=== PATIENT | female | born 1955 | race Caucasian/White ===

== ENCOUNTER → 2020-02-01 10:38 | Outpatient (BNVA) | payer MEDICARE, MEDICAID, SELFPAY | PROVIDERS: PCP Internal Medicine; Referring Provider Internal Medicine; Visit Provider Surgery Vascular Surgery | DX: I73.9 Peripheral vascular disease, unspecified (principal); I77.1 Stricture of artery | CPT/HCPCS: 99213 ==

== ENCOUNTER 2020-05-13 13:33 | Outpatient (REF) | payer MEDICARE, MEDICAID, SELFPAY ==
--- NOTE | 2020-05-13 13:38 | US_ITS ---
EXAMINATION: COLOR-FLOW DUPLEX IMAGING OF THE BILATERAL LOWER EXTREMITY ARTERIAL SYSTEM. VELOCITY MEASUREMENTS THROUGHOUT THE FEMORAL ARTERIES WITH ANKLE-BRACHIAL PERIPHERAL ARTERIAL TESTING. CLINICAL INFORMATION: This is a 64-year-old female with peripheral arterial disease. Claudication. History of left external iliac artery stent. Interventional Radiologist: Timmy Shetty M.D., F.S.I.R., F.A.C.R. Comparison is made to a previous study dated 12/26/2019 which demonstrated a right ankle-brachial index of 0.80 and the left ankle-brachial index of 0.47. The patient also had elevated velocities in the left common femoral artery as well as the mid right superficial femoral artery, respectively. RIGHT FEMORAL RUNOFF VELOCITIES: The right common femoral artery measures 165 cm/s and triphasic. The right profunda femoral artery is 142 cm/s and is monophasic. Right proximal superficial femoral artery measures 173 cm/s and triphasic. Mid superficial femoral artery is 136 cm/s and triphasic. Distal right superficial femoral artery measures 81 cm/s and is biphasic. Right popliteal velocity measures 68 cm/s and is triphasic. The posterior tibial artery velocity measures 71 cm/s and was triphasic. The right ankle-brachial index is 0.86. The waveforms are mildly depressed. LEFT FEMORAL RUNOFF VELOCITIES: The left common femoral artery measures 162 cm/s and monophasic. The left profunda femoral artery is 247 cm/s and is monophasic. Left proximal superficial femoral artery measures 262 cm/s and monophasic. There appears to be occlusion of the proximal to mid left superficial femoral artery. Mid superficial femoral artery is 35 cm/s and monophasic. Distal left superficial femoral artery measures 37 cm/s and is monophasic. Left popliteal velocity measures 35 cm/s and is monophasic. The posterior tibial artery velocity measures 22 cm/s and was monophasic. The left peroneal artery is not seen and may be occluded. The left ankle-brachial index is 0.55. The waveforms are depressed. US/US arterial duplex LE BI IMPRESSION: 1. RIGHT SIDE: There is mild hemodynamically significant obstructive disease in the right lower extremity. This appears similar to the previous study. 2. LEFT SIDE: There is hemodynamically significant stenosis within the proximal left common femoral artery. There is hemodynamically significant stenosis in the proximal superficial femoral artery which then leads into a occluded segment. There is moderate obstruction based on the ankle-brachial index. The current ankle-brachial index is 0.55 on the left and 0.47 previously.
== END 2020-05-13 13:34 | disposition home or self-care (01) ==
LOC: HO.US 13:33
PROVIDERS: Visit Provider Surgery Vascular Surgery
DX: I73.9 Peripheral vascular disease, unspecified (principal); I65.29 Occlusion and stenosis of unspecified carotid artery
CPT/HCPCS: 93923; 93925

== ENCOUNTER → 2020-06-18 11:13 | Outpatient (BNVA) | payer MEDICARE, MEDICAID, SELFPAY | PROVIDERS: PCP Internal Medicine; Visit Provider Surgery Vascular Surgery | DX: I73.9 Peripheral vascular disease, unspecified (principal) | CPT/HCPCS: 99212 ==

== ENCOUNTER 2021-09-01 12:57 | Outpatient (RCR) | payer MEDICARE, MEDICAID, SELFPAY | END 2021-11-25 13:51 | disposition home or self-care (01) | LOC: HO.WCC 12:57 | PROVIDERS: PCP Internal Medicine; Visit Provider Physician Assistant | DX: L89.152 Pressure ulcer of sacral region, stage 2 (principal); N18.30 Chronic kidney disease, stage 3 unspecified; I69.354 Hemiplegia and hemiparesis following cerebral infarction affecting left non-dominant side; J44.9 Chronic obstructive pulmonary disease, unspecified; Z87.891 Personal history of nicotine dependence; Z99.81 Dependence on supplemental oxygen; Z79.899 Other long term (current) drug therapy; Z79.891 Long term (current) use of opiate analgesic | CPT/HCPCS: 11042; 16020; 16025; 99212; 99213; 99214 ==

== ENCOUNTER 2022-09-03 12:40 | Outpatient (REF) | payer MEDICARE, MEDICAID, SELFPAY ==
--- NOTE | ~2022-09-03 | US_ITS ---
EXAMINATION: ANKLE-BRACHIAL INDICES SINGLE LEVEL PULSE VOLUME RECORDING ARTERIAL DUPLEX BILATERAL LEGS CLINICAL INFORMATION: Claudication. COMPARISON: 05/13/2020 TECHNIQUE: Ankle-brachial indices and PVR at the ankle were obtained. Duplex Doppler of the bilateral lower extremity arterial systems was performed. FINDINGS: RIGHT: Ankle-brachial index: 0.76, previous 0.86. PVR: Mildly dampened. Common femoral: PSV 156 cm/s. Triphasic waveform. Deep femoral: PSV 162 cm/s. Triphasic waveform. Proximal superficial femoral: PSV 128 cm/s. Biphasic waveform. Mid superficial femoral: PSV 232 cm/s. Biphasic waveform. Distal superficial femoral: PSV 397 cm/s. Monophasic waveform. Popliteal: PSV 81 cm/s. Biphasic waveform. Posterior tibial: PSV 79 cm/s. Biphasic waveform proximally. Monophasic waveform distally. Peroneal: PSV 41 cm/s. Biphasic waveform proximally. Monophasic waveform distally. LEFT: Ankle-brachial index: 0.59, previous 0.55. PVR: Moderately dampened. Common femoral: PSV 127 cm/s. Triphasic waveform. Deep femoral: PSV 177 cm/s. Monophasic waveform. Proximal superficial femoral: PSV 137 cm/s. Monophasic waveform. Mid superficial femoral: Occluded. Distal superficial femoral: PSV 84 cm/s. Monophasic waveform. Popliteal: PSV 40 cm/s. Monophasic waveform. Posterior tibial: PSV 51 cm/s. Monophasic waveform. Peroneal: PSV 22 cm/s. Monophasic waveform. US/US MADDI complete IMPRESSION: Right lower extremity: Mild peripheral arterial disease by MADDI and PVR criteria. Hemodynamically significant stenosis in the mid to distal SFA in addition to distal posterior tibial and peroneal disease. Left lower extremity: Moderate peripheral arterial disease by MADDI are and PVR criteria. Chronically occluded mid SFA with distal reconstitution.
--- NOTE | ~2022-09-03 | US_ITS ---
EXAMINATION: ANKLE-BRACHIAL INDICES SINGLE LEVEL PULSE VOLUME RECORDING ARTERIAL DUPLEX BILATERAL LEGS CLINICAL INFORMATION: Claudication. COMPARISON: 05/13/2020 TECHNIQUE: Ankle-brachial indices and PVR at the ankle were obtained. Duplex Doppler of the bilateral lower extremity arterial systems was performed. FINDINGS: RIGHT: Ankle-brachial index: 0.76, previous 0.86. PVR: Mildly dampened. Common femoral: PSV 156 cm/s. Triphasic waveform. Deep femoral: PSV 162 cm/s. Triphasic waveform. Proximal superficial femoral: PSV 128 cm/s. Biphasic waveform. Mid superficial femoral: PSV 232 cm/s. Biphasic waveform. Distal superficial femoral: PSV 397 cm/s. Monophasic waveform. Popliteal: PSV 81 cm/s. Biphasic waveform. Posterior tibial: PSV 79 cm/s. Biphasic waveform proximally. Monophasic waveform distally. Peroneal: PSV 41 cm/s. Biphasic waveform proximally. Monophasic waveform distally. LEFT: Ankle-brachial index: 0.59, previous 0.55. PVR: Moderately dampened. Common femoral: PSV 127 cm/s. Triphasic waveform. Deep femoral: PSV 177 cm/s. Monophasic waveform. Proximal superficial femoral: PSV 137 cm/s. Monophasic waveform. Mid superficial femoral: Occluded. Distal superficial femoral: PSV 84 cm/s. Monophasic waveform. Popliteal: PSV 40 cm/s. Monophasic waveform. Posterior tibial: PSV 51 cm/s. Monophasic waveform. Peroneal: PSV 22 cm/s. Monophasic waveform. US/US arterial duplex LE BI IMPRESSION: Right lower extremity: Mild peripheral arterial disease by MADDI and PVR criteria. Hemodynamically significant stenosis in the mid to distal SFA in addition to distal posterior tibial and peroneal disease. Left lower extremity: Moderate peripheral arterial disease by MADID are and PVR criteria. Chronically occluded mid SFA with distal reconstitution.
== END 2022-09-03 12:41 | disposition home or self-care (01) ==
LOC: HO.US 12:40
PROVIDERS: PCP Internal Medicine; Visit Provider Surgery Vascular Surgery
DX: I70.213 Atherosclerosis of native arteries of extremities with intermittent claudication, bilateral legs (principal)
CPT/HCPCS: 93923; 93925

== ENCOUNTER 2023-01-20 12:52 | Inpatient (IN) | payer MEDICARE, MEDICAID, SELFPAY ==
--- NOTE | ~2023-01-20 | XR_ITS ---
EXAMINATION: XR CHEST CLINICAL INFORMATION: Lethargy COMPARISON: CT chest 06/25/2022 TECHNIQUE: Frontal view of the chest was obtained. FINDINGS: The heart is mildly enlarged. The lungs are mildly hypoinflated. The interstitium is prominent. The aorta is calcified and unfolded. No evidence of gross CHF. Bibasilar atelectasis is seen. No pleural effusions. There is a thoracic scoliosis convex to the left. Degenerative changes in both shoulders, left greater than right XR/XR chest 1V IMPRESSION: Cardiomegaly with bibasilar atelectasis. No acute intrathoracic disease.
[2023-01-20 13:03] VITALS: BP 153/68; PULSE 72; O2SAT 100
--- NOTE | 2023-01-20 13:06 | ECG_ITS ---
Test Reason : Altered Mental Status Blood Pressure : / mmHG Vent. Rate : 073 BPM Atrial Rate : 073 BPM P-R Int : 172 ms QRS Dur : 080 ms QT Int : 388 ms P-R-T Axes : 042 000 047 degrees QTc Int : 427 ms Normal sinus rhythm Normal ECG No previous ECGs available Referred By: Evelia Maxwell Electronically Signed By:REBA MORAES
--- NOTE | 2023-01-20 13:07 | ED.GENADULT ---
HPI - General Adult General Chief complaint: Altered Mental Status Stated complaint: ABD PAIN,AMS,?UTI FROM [facility] PER EMS Time Seen by Provider: 01/20/23 12:57 Source: patient and EMS Mode of arrival: EMS Limitations: other (Lethargic) History of Present Illness HPI narrative: Patient comes to the emergency room by ambulance from a senior living. According to the senior living, patient is more lethargic than usual, patient has been complaining of suprapubic pain. Earlier today, the senior living did a urinalysis, seems it was positive. Patient unable to give full history, but is able to express that she has suprapubic pain and feels terrible?. Denies nausea vomiting or diarrhea, no URI symptoms. Patient has a chronic Brito catheter. Patient denies CVA tenderness Related Data Previous Rx's Medication Instructions Recorded cefuroxime axetil 500 mg tablet 500 mg PO BID #14 tabs 01/20/23 Allergies Allergy/AdvReac Type Severity Reaction Status Date / Time shellfish derived Allergy Unknown Verified 06/18/20 11:19 Review of Systems Review of Systems: Constitutional : No Weight loss, No Fever, No Chills, No Night Sweats, No Fatigue, complaining of generalized malaise ENT/Mouth : No Hearing loss, No Ear Pain, No Nasal Congestion, No Sinus Pain, No Hoarseness, No sore throat, No Rhinorrhea, No Swallowing Difficulty Eyes: No Eye Pain, No Swelling, No Redness, No Foreign Body, No Discharge, No Vision Changes Cardiovascular : No Chest Pain, No SOB, No Dyspnea on Exertion, No Orthopnea, No Edema, No Palpitations Respiratory : No Cough, No Sputum, No Wheezing, No Smoke Exposure, No Dyspnea Gastrointestinal : No Nausea, No Vomiting, No Diarrhea, No Constipation, thinning of suprapubic pain Genitourinary : no irregular bleeding, No Dysuria, No Urinary Frequency, No Hematuria, No Urinary Incontinence, No Urgency, No Flank Pain, No Urinary Flow Changes, No Hesitancy Musculoskeletal : No joint pain, No Myalgias, No Joint Swelling Skin : No Skin Lesions, No rash Neuro : No Weakness, No Numbness, No Paresthesias, No Loss of Consciousness, No Dizziness, No Headache Psych : No Anxiety/Panic, No Depression, No SI/HI/AH/VH, No Social Issues, Heme/Lymph: No Bruising, No Bleeding,No Lymphadenopathy Endocrine : No Polyuria, No Polydipsia, No Temperature Intolerance ON LICENSE OF [facility] Past Medical History Medical History Left knee injury FH: cataracts Wernicke-Korsakoff syndrome (alcoholic) COPD (chronic obstructive pulmonary disease) Pneumonia UTI (urinary tract infection) Proctocolitis Osteomyelitis of ankle CKD (chronic kidney disease) Hyperlipidemia Hypertension Depression CVA (cerebral vascular accident) Social History Social History Alcohol intake: never Cigarettes Per Day: 10 Years Smoked: 50 Smoked in Last 30 Days: No Use of substances other than those prescribed or required for medical reasons: No Advance Directives: Yes Advance Directives on File: Yes Advance Directives Date on File: 05/14/21 Physical Exam ED Vital Signs: Vital Signs - 24 hr 01/20/23 13:17 Temperature 98.9 F Pulse Rate 71 Respiratory Rate 18 Blood Pressure 151/59 H Pulse Oximetry 99 Oxygen Delivery Method Nasal Cannula BMI result Body Mass Index 61.5 Const Other: Appearance: Alert, somnolence/lethargic but easily arousable, No acute distress. Patient has a strong odor of UTI Eyes: Pupils equal, round and reactive to light. ENT: Pharynx normal. Dry oral mucosa Neck: Normal inspection. Neck supple. No lymph nodes noted. No crepitus CVS: Normal heart rate and rhythm. Pulses normal. Normal S1 and S2 Respiratory: No respiratory distress. Breath sounds normal. No Wheezing. No rales Abdomen: Discomfort to palpation in suprapubic area, No rigidity. No distention. Skin: Skin warm and dry. Normal skin color. Normal skin turgor. Extremities: No lower extremity edema. No Lacerations. No Rash Neuro: Chronic hemiplegia with 2 CVA right side Psych: calm, cooperative Course Course Course Narrative: -all of patient's labs pending. -13:15, patient looks lethargic, has a strong odor of UTI. Patient will be given IV fluids based on ideal weight of 43 kg, IV antibiotics have been started. At this time, sepsis is not suspected Medications Administered Discontinued Medications Generic Name Dose Route Start Last Admin Trade Name Freq PRN Reason Stop Dose Admin Sodium Chloride 2,000 mls @ 999 mls/hr 01/20/23 13:05 01/20/23 16:21 Ns IVCONT 01/20/23 15:05 Infused .Q2H1M ONE Infusion Ceftriaxone Sodium 1 gm/ 50 mls @ 100 mls/hr 01/20/23 13:05 01/20/23 14:44 Sodium Chloride IV 01/20/23 13:34 Infused ONCE ONE Infusion Medical Decision Making Medical Decision Making MDM Narrative: Patient seemed to be dehydrated on arrival, 2 L of fluid given. -my interpretation of labs: White blood cell count and lactic within normal limits. Hematology and chemistry did not show any significant acute abnormalities. Urinalysis positive for UTI. -patient already received IV fluids and ceftriaxone. -patient remains afebrile, normotensive. Patient may return to the [facility] with p.o. antibiotics. -there is no blood in the urine and patient has no CVA tenderness, unlikely that patient has ureterolithiasis -patient remains lethargic, somnolent, stable. Patient coming from a senior living. Discussed the patient with Dr. Negrete, patient to be admitted Differential Diagnosis Differential Diagnoses: The differential diagnosis associated with the presentation includes (UTI, pyelonephritis, renal colic, dehydration) Admission/Observation Consideration of admission/observation: Escalation of care including admission/observation considered Consult Healthcare Provider Management of the patient was discussed with: Hospitalist Lab Data [facility] Lab Attestation statement: I reviewed the patient's lab results. 01/20/23 13:59 01/20/23 13:59 Labs: Lab Results 01/20/23 01/20/23 01/20/23 Range/Units 13:59 14:14 14:58 WBC 10.3 (4.8-10.8) X10*3/uL RBC 4.33 (4.20-5.50) X10*6/uL Hgb 12.6 (12.0-16.0) g/dl Hct 39.9 (37.0-47.0) % MCV 92.1 (80.0-98.0) fL MCH 29.1 (27.0-33.0) pg MCHC 31.6 (31.0-35.0) g/dl RDW 12.8 (11.0-16.0) % Plt Count 230 (160-400) X10*3/uL MPV 11.2 (9.4-12.3) fL Immature Gran % (Auto) 0.5 H (0.0-0.4) % Neut % (Auto) 80.4 H (45-73) % Lymph % (Auto) 11.8 L (20-40) % [place] % (Auto) 6.1 (2-11) % Eos % (Auto) 0.8 (0-4) % Baso % (Auto) 0.4 (0-2) % Lymph # (Auto) 1.2 (1.2-4.9) X10*3/uL [place] # (Auto) 0.6 (0.1-1.2) X10*3/uL Eos # (Auto) 0.1 (0.0-0.4) X10*3/uL Baso # (Auto) 0.0 (0.0-0.2) X10*3/uL Abs Immat Gran (auto) 0.05 H (0.00-0.03) X10*3/uL Absolute Neuts (auto) 8.3 (2.0-8.3) x10*3/uL Absolute Nucleated RBC 0.000 (0.0-0.012) X10*3/uL Nucleated RBC % (auto) 0.0 (0.0-0.2) /100WBC PT 12.5 (11.1-13.3) SEC INR 1.0 (0.9-1.1) Sodium 145 (135-145) mmol/L Potassium 3.3 (3.3-5.1) mmol/L Chloride 103 (96-108) mmol/L Carbon Dioxide 31 H (22-29) mmol/L Anion Gap 14 (12-20) BUN 49 H (9-16) mg/dL Creatinine 1.40 (0.5-1.4) mg/dL Estim Creat Clear Calc 46.6 Estimated GFR 38 Random Glucose 108 (60-115) mg/dL Lactic Acid 0.7 (0.5-2.0) mmol/L Calcium 10.5 H (8.4-10.2) mg/dL Magnesium 2.5 (1.6-2.6) mg/dL Total Bilirubin 0.4 (0.0-1.0) mg/dL Direct Bilirubin 0.2 (0.0-0.5) mg/dL AST 13 (5-31) U/L ALT 20 (0-31) U/L Alkaline Phosphatase 90 (39-117) U/L Troponin I High Sens 7.6 (<3.5-17.0) ng/L Total Protein 8.2 H (6.5-8.0) g/dL Albumin 4.0 (3.5-5.0) g/dL Lipase 17 (8-78) U/L TSH 1.20 (0.32-4.0) uIU/mL Urine Color Yellow Urine Appearance Clear Urine pH 5.5 (5.0-9.0) Ur Specific [place] 1.010 (1.005-1.025) Urine Protein 100 (2+) H (Neg-Trace) mg/dL Urine Glucose (UA) Negative (Negative) mg/dL Urine Ketones Negative (Negative) mg/dL Urine Blood Negative (Negative) Urine Nitrite Positive H (Negative) Ur Leukocyte Esterase Moderate (2+) H (Negative) Urine RBC 0-2 (0-2) /HPF Urine WBC 21-50 H (0-5) /HPF Ur Squamous Epith Cells 3-5 (0-2) /HPF Urine Bacteria 4+ (None Seen) Hyaline Casts 0-2 (0-2) /LPF COVID-19 (KAREN) Negative (Negative) COVID-19 Clin Com See Note Critical Care Time Critical Care Time Critical Care Time: Yes Total Critical Care Time: 60 Attestation: I have personally provided critical care time. Time includes review of lab data, radiology results, discussion with consultants, and monitoring for potential decompensation. Intervention performed as documented. Discharge Plan Discharge Clinical Impression: Acute UTI, Acute dehydration Patient Disposition: Admitted As Inpatient Instructions: Urinary Tract Infection in Older Adults (ED) Additional Instructions: Please follow-up with your primary care physician tomorrow. If you have any worsening or new symptoms, please return to the emergency room or call 911 Prescriptions: New cefuroxime axetil 500 mg tablet 500 mg PO BID Qty: 14 0RF
[2023-01-20 13:17] VITALS: BP 151/59; PULSE 71; RESP 18; TEMP 37.2; O2SAT 99; BMI 61.5
[2023-01-20 14:07] LABS: MANUAL DIFF FLAG NO
[2023-01-20] MEDS: cefTRIAXone sodium 1 GM in 0.9 % Sodium Chloride 50 ML IV (14:09)
[2023-01-20] MEDS: 0.9 % Sodium Chloride 2,000 ML 999 ML IVCONT (14:09)
[2023-01-20 14:12] LABS: Basophils Percent Auto 0.4 % (0-2); Eosinophils Absolute Auto 0.1 X10*3/uL (0.0-0.4); Eosinophils Percent Auto 0.8 % (0-4); Hematocrit 39.9 % (37.0-47.0); Hemoglobin 12.6 g/dl (12.0-16.0); Imm Gran Abs Auto 0.05 X10*3/uL (0.00-0.03); Imm Gran Pct Auto 0.5 % (0.0-0.4); Lymphocytes Absolute Auto 1.2 X10*3/uL (1.2-4.9); Lymphocytes Percent Auto 11.8 % (20-40); Mean Corpuscular HGB Conc 31.6 g/dl (31.0-35.0); Mean Corpuscular Hemoglobin 29.1 pg (27.0-33.0); Mean Corpuscular Volume 92.1 fL (80.0-98.0); Mean Platelet Volume 11.2 fL (9.4-12.3); Monocytes Absolute Auto 0.6 X10*3/uL (0.1-1.2); Monocytes Percent Auto 6.1 % (2-11); Neutrophils Absolute Auto 8.3 x10*3/uL (2.0-8.3); Neutrophils Percent Auto 80.4 % (45-73); Platelet Count 230 X10*3/uL (160-400); Red Blood Count 4.33 X10*6/uL (4.20-5.50); Red Cell Distribution Width 12.8 % (11.0-16.0); White Blood Count 10.3 X10*3/uL (4.8-10.8)
[2023-01-20 14:20] LABS: Prothrombin Time 12.5 SEC (11.1-13.3)
[2023-01-20 14:21] LABS: Appearance Urine Clear; Color Urine Yellow; Glucose Urine UA Negative (Negative); Leukocyte Esterase Urine Moderate (2+) (Negative); Nitrite Urine Positive (Negative); PH 5.5 (5.0-9.0); UMIC TRIGGER UACC YES; Urine Blood Negative (Negative); Urine Ketones Negative (Negative); Urine Protein 100 (2+) mg/dL (Neg-Trace)
[2023-01-20 14:22] LABS: Lactic Acid 0.7 mmol/L (0.5-2.0)
[2023-01-20 14:25] LABS: Bacteria Urine 4+ (None Seen); Hyaline Casts Urine 0-2 /LPF (0-2); RBC Urine 0-2 /HPF (0-2); UACC Culture Trigger YES; WBC Urine 21-50 /HPF (0-5)
[2023-01-20 14:28] LABS: Alanine Aminotransferase 20 U/L (0-31); Alkaline Phosphatase 90 U/L (39-117); Anion Gap 14 (12-20); Aspartate Amino Transferase 13 U/L (5-31); Bilirubin Direct 0.2 mg/dL (0.0-0.5); Bilirubin Total 0.4 mg/dL (0.0-1.0); Blood Urea Nitrogen 49 mg/dL (9-16); Calcium 10.5 mg/dL (8.4-10.2); Carbon Dioxide 31 mmol/L (22-29); Chloride 103 mmol/L (96-108); Creatinine Clr Calc Pharmacy 46.6; Estimated Glomerular Filt Rate 38; Glucose Random 108 mg/dL (60-115); Lipase 17 U/L (8-78); Magnesium 2.5 mg/dL (1.6-2.6); Potassium 3.3 mmol/L (3.3-5.1); Sodium 145 mmol/L (135-145); Total Protein 8.2 g/dL (6.5-8.0)
[2023-01-20 14:35] LABS: Troponin-I High Sensitivity 7.6 ng/L (<3.5-17.0)
[2023-01-20 15:22] LABS: COVID-19 Test Negative (Negative); IDNOW Serial# 08D9AD1C
[2023-01-20 16:33] VITALS: BP 163/67; PULSE 81; RESP 18; TEMP 37; O2SAT 95
[2023-01-20 16:44] VITALS: BMI 29.6
--- NOTE | 2023-01-20 16:44 | PC.NURSE ---
Weight corrected in MAR
--- NOTE | 2023-01-20 16:52 | PHA.MEDREC ---
Pharmacy Consult ? Medication Reconciliation Pharmacy has completed the medication reconciliation. Patient came with list [facility] that match claim history
--- NOTE | 2023-01-20 16:54 | PM.IMHP ---
History of Present Illness Date of Service: 01/20/23 Chief Complaint: ams 67F PMH CVA with left hemiparesis, aphasia, hypertension, chronic urinary tension with Salas catheter and recurrent UTIs, COPD, epilepsy, hyperlipidemia presented from long term with altered mental status. Patient unable to give history, history taken from ER/long term, patient presented more lethargic than usual for about 1 day, complaining of suprapubic pain, UA in long term was positive, sent to ED. In ED urine was grossly positive. Started on ceftriaxone. Review of Systems Review of Systems: Yes all other systems are reviewed and are negative [facility] Medical History Left knee injury FH: cataracts Wernicke-Korsakoff syndrome (alcoholic) COPD (chronic obstructive pulmonary disease) Pneumonia UTI (urinary tract infection) Proctocolitis Osteomyelitis of ankle CKD (chronic kidney disease) Hyperlipidemia Hypertension Depression CVA (cerebral vascular accident) Social History Alcohol intake: never Cigarettes Per Day: 10 Years Smoked: 50 Smoked in Last 30 Days: No Use of substances other than those prescribed or required for medical reasons: No Advance Directives: Yes Advance Directives on File: Yes Advance Directives Date on File: 05/14/21 Meds Allergies Allergy/AdvReac Type Severity Reaction Status Date / Time shellfish derived Allergy Unknown Verified 06/18/20 11:19 Active Medications: Current Medications Enoxaparin Sodium (Enoxaparin Sodium 40 Mg/0.4 Ml Syringe) 40 mg SUBCUT Q24H [facility] Ceftriaxone Sodium 1 gm/ (Sodium Chloride) 50 mls @ 100 mls/hr IV Q24H [facility] Sodium Chloride (0.9 % Sodium Chloride Flush 3 Ml Syringe) 3 ml IVFLUSH QSHIFT [facility] Home Medications Medication Instructions Recorded Confirmed Last Taken Type amlodipine 5 mg tablet 5 mg PO DAILY 01/20/23 01/20/23 Unknown History ascorbic acid (vitamin C) 500 mg 500 mg PO BID 01/20/23 01/20/23 Unknown History tablet atorvastatin 80 mg tablet 80 mg PO BEDTIME 01/20/23 01/20/23 Unknown History baclofen 10 mg tablet 10 mg PO TID 01/20/23 01/20/23 Unknown History calcium acetate 952 mg-aluminum 1 appl topical 3XW 01/20/23 01/20/23 Unknown History sulfate 1,347 mg topical powder packet ([place]) clopidogrel 75 mg tablet 75 mg PO DAILY 01/20/23 01/20/23 Unknown History denosumab 60 mg/mL subcutaneous 60 mg subcut [id number] 01/20/23 01/20/23 Unknown History syringe (Prolia) duloxetine 30 mg capsule,delayed 30 mg PO QAM 01/20/23 01/20/23 Unknown History release (Cymbalta) ferrous sulfate 325 mg (65 mg 325 mg PO DAILY 01/20/23 01/20/23 Unknown History iron) tablet fluticasone fur. 100 mcg-umeclid 1 ea inhalation DAILY 01/20/23 01/20/23 Unknown History 62.5 mcg-vilant 25 mcg inhalat.powder (Trelegy Ellipta) furosemide 20 mg tablet 20 mg PO DAILY 01/20/23 01/20/23 Unknown History indapamide 1.25 mg tablet 1.25 mg PO DAILY 01/20/23 01/20/23 Unknown History levetiracetam 750 mg tablet 750 mg PO BID 01/20/23 01/20/23 Unknown History melatonin 5 mg tablet 5 mg PO BEDTIME 01/20/23 01/20/23 Unknown History mupirocin 2 % topical ointment 1 appl topical TID 01/20/23 01/20/23 Unknown History ramipril 10 mg capsule 10 mg PO DAILY 01/20/23 01/20/23 Unknown History Physical Exam Vital Signs and Narrative: Vital Signs: Last Vital Signs Temp 98.6 F 01/20/23 16:33 Pulse 81 01/20/23 16:33 Resp 18 01/20/23 16:33 BP 163/67 H 01/20/23 16:33 Pulse Ox 95 01/20/23 16:33 O2 Del Method Nasal Cannula 01/20/23 16:33 O2 Flow Rate 2.5 01/20/23 16:33 Oxygen Flow Rate 2 01/20/23 13:17 BMI result Body Mass Index 29.6 alert, answering name only, left hemiparesis, chronic salas Results Labs 01/20/23 13:59 01/20/23 13:59 Labs: Laboratory Results - last 24 hr 01/20/23 01/20/23 01/20/23 13:59 14:14 14:58 MCV 92.1 MCH 29.1 MCHC 31.6 RDW 12.8 Plt Count 230 MPV 11.2 Immature Gran % (Auto) 0.5 H Neut % (Auto) 80.4 H Lymph % (Auto) 11.8 L [place] % (Auto) 6.1 Eos % (Auto) 0.8 Baso % (Auto) 0.4 Lymph # (Auto) 1.2 [place] # (Auto) 0.6 Eos # (Auto) 0.1 Baso # (Auto) 0.0 Abs Immat Gran (auto) 0.05 H Absolute Neuts (auto) 8.3 Absolute Nucleated RBC 0.000 Nucleated RBC % (auto) 0.0 PT 12.5 INR 1.0 Anion Gap 14 Estim Creat Clear Calc 46.6 Estimated GFR 38 Random Glucose 108 Lactic Acid 0.7 Calcium 10.5 H Magnesium 2.5 Total Bilirubin 0.4 Direct Bilirubin 0.2 AST 13 ALT 20 Alkaline Phosphatase 90 Total Protein 8.2 H Albumin 4.0 Lipase 17 TSH 1.20 Urine Color Yellow Urine Appearance Clear Urine pH 5.5 Ur Specific [place] 1.010 Urine Protein 100 (2+) H Urine Glucose (UA) Negative Urine Ketones Negative Urine Blood Negative Urine Nitrite Positive H Ur Leukocyte Esterase Moderate (2+) H Urine RBC 0-2 Urine WBC 21-50 H Ur Squamous Epith Cells 3-5 Urine Bacteria 4+ Hyaline Casts 0-2 COVID-19 (KAREN) Negative COVID-19 Clin Com See Note Imaging Radiologist's Impressions: Impressions Chest X-Ray 01/20/23 14:28 IMPRESSION: Cardiomegaly with bibasilar atelectasis. No acute intrathoracic disease. Assessment and Plan (1) Acute UTI: Status: Acute Plan 67F PMH CVA with left hemiparesis, aphasia, hypertension, chronic urinary tension with Salas catheter and recurrent UTIs, COPD, epilepsy, hyperlipidemia presented from long term with altered mental status Acute metabolic encephalopathy due to recurrent urinary tract infection due to chronic indwelling Salas catheter IV ceftriaxone, follow-up cultures, catheter exchanged in long term Epilepsy Keppra CKD 3 Stable Hypertension Continue JOHNSON-inhibitor, amlodipine History of CVA with left hemiparesis and aphasia Plavix, statin COPD Inhalers p.r.n. DVT prophylaxis with Lovenox Full code Patient with catheter associated UTI, concern for resistant organisms due to recurrence, concern for progression to sepsis due to risk factors of CVA and chronic indwelling Salas. Therefore, expected to require at least 2 midnights inpatient Time Spent With Patient Time: Total time managing care of this patient today ____ minutes. Quality Stroke Does the patient have a stroke diagnosis?: No VTE Prior VTE?: No VTE Risk Level:: Medical - moderate - high VTE Device Contraindication: Treatment Not Indicated VTE Drug Contraindication: N/A - Med Ordered
[2023-01-20] MEDS: Enoxaparin Sodium 40 MG/0.4 ML SYRINGE SUBCUT (16:57)
--- NOTE | 2023-01-20 17:43 | PC.NURSE ---
report to eric lindsay
[2023-01-20 19:02] VITALS: BMI 29.0
[2023-01-20 20:00] VITALS: BP 156/63; PULSE 77; RESP 16; TEMP 36.6; O2SAT 98
[2023-01-20] MEDS: levETIRAcetam 250 MG TABLET 750 MG PO (20:51)
[2023-01-20] MEDS: Melatonin 3 MG TABLET 6 MG PO (20:51)
[2023-01-20] MEDS: Ascorbic Acid 500 MG TABLET PO (20:51)
[2023-01-20] MEDS: Baclofen 10 MG TABLET PO (20:51)
[2023-01-20] MEDS: Atorvastatin Calcium 80 MG TABLET PO (20:51)
[2023-01-20] MEDS: 0.9 % Sodium Chloride Flush 3 ML SYRINGE IVFLUSH (20:52)
[2023-01-21 03:58] VITALS: BP 137/62; PULSE 84; RESP 16; TEMP 36.3; O2SAT 98
[2023-01-21 05:35] LABS: Hematocrit 34.8 % (37.0-47.0); Mean Corpuscular HGB Conc 31.6 g/dl (31.0-35.0); Mean Corpuscular Hemoglobin 28.6 pg (27.0-33.0); Mean Corpuscular Volume 90.4 fL (80.0-98.0); Mean Platelet Volume 11.1 fL (9.4-12.3); Platelet Count 208 X10*3/uL (160-400); Red Blood Count 3.85 X10*6/uL (4.20-5.50); Red Cell Distribution Width 12.6 % (11.0-16.0); White Blood Count 9.8 X10*3/uL (4.8-10.8)
[2023-01-21 05:52] LABS: Anion Gap 15 (12-20); Blood Urea Nitrogen 37 mg/dL (9-16); Calcium 9.9 mg/dL (8.4-10.2); Carbon Dioxide 27 mmol/L (22-29); Chloride 107 mmol/L (96-108); Creatinine Clr Calc Pharmacy 38.8; Estimated Glomerular Filt Rate 51; Glucose Fasting 106 mg/dL (60-99); Sodium 146 mmol/L (135-145)
[2023-01-21 07:02] VITALS: BP 130/60; PULSE 72; RESP 16; TEMP 36.6; O2SAT 98
[2023-01-21] MEDS: 0.9 % Sodium Chloride Flush 3 ML SYRINGE IVFLUSH ×3 (08:55→23:36)
[2023-01-21] MEDS: levETIRAcetam 250 MG TABLET 750 MG PO ×2 (08:55→20:15)
[2023-01-21] MEDS: Baclofen 10 MG TABLET PO ×3 (08:55→20:15)
[2023-01-21] MEDS: lisinopriL 40 MG TABLET PO (08:55)
[2023-01-21] MEDS: Ferrous Sulfate 324 MG TABLET.DR PO (08:55)
[2023-01-21] MEDS: Ascorbic Acid 500 MG TABLET PO ×2 (08:55→20:15)
[2023-01-21] MEDS: amLODIPine Besylate 5 MG TABLET PO (08:55)
[2023-01-21] MEDS: DULoxetine HCl 30 MG CAPSULE.DR PO (08:55)
[2023-01-21] MEDS: Clopidogrel Bisulfate 75 MG TABLET PO (08:55)
--- NOTE | 2023-01-21 09:12 | P.PNIM_ITS ---
Subjective Subjective Date of Service: 01/21/23 Interval History: no changes Physical Exam 2 Vital Signs: Vital Signs: Last Vital Signs Temp 97.8 F 01/21/23 07:02 Pulse 72 01/21/23 07:02 Resp 16 01/21/23 07:02 BP 130/60 01/21/23 07:02 Pulse Ox 98 01/21/23 07:02 O2 Del Method Nasal Cannula 01/21/23 07:02 O2 Flow Rate 2 01/21/23 07:02 Oxygen Flow Rate 2 01/20/23 13:17 BMI result Body Mass Index 29.0 lethargic, minimally verbal Objective Data Active Medications Amlodipine Besylate (Amlodipine Besylate 5 Mg Tablet) 5 mg PO DAILY [facility]; Protocol Last Admin: 01/21/23 08:55 Dose: 5 mg Documented By: SEEMA Ascorbic Acid (Ascorbic Acid 500 Mg Tablet) 500 mg PO BID [facility] Last Admin: 01/21/23 08:55 Dose: 500 mg Documented By: SEEMA Atorvastatin Calcium (Atorvastatin Calcium 80 Mg Tablet) 80 mg PO BEDTIME [facility] Last Admin: 01/20/23 20:51 Dose: 80 mg Documented By: ROBERT Baclofen (Baclofen 10 Mg Tablet) 10 mg PO TID [facility] Last Admin: 01/21/23 08:55 Dose: 10 mg Documented By: SEEMA Clopidogrel Bisulfate (Clopidogrel Bisulfate 75 Mg Tablet) 75 mg PO DAILY [facility] Last Admin: 01/21/23 08:55 Dose: 75 mg Documented By: SEEMA Duloxetine HCl (Duloxetine Hcl 30 Mg Capsule.) 30 mg PO DAILY [facility] Last Admin: 01/21/23 08:55 Dose: 30 mg Documented By: SEEMA Enoxaparin Sodium (Enoxaparin Sodium 40 Mg/0.4 Ml Syringe) 40 mg SUBCUT Q24H [facility] Last Admin: 01/20/23 16:57 Dose: 40 mg Documented By: KEVEN Ferrous Sulfate (Ferrous Sulfate 324 Mg Tablet.) 324 mg PO DAILY [facility] Last Admin: 01/21/23 08:55 Dose: 324 mg Documented By: SEEMA Ceftriaxone Sodium 1 gm/ (Sodium Chloride) 50 mls @ 100 mls/hr IV Q24H [facility] Levetiracetam (Levetiracetam 250 Mg Tablet) 750 mg PO BID [facility] Last Admin: 01/21/23 08:55 Dose: 750 mg Documented By: SEEMA Lisinopril (Lisinopril 40 Mg Tablet) 40 mg PO DAILY [facility] Last Admin: 01/21/23 08:55 Dose: 40 mg Documented By: SEEMA Melatonin (Melatonin 3 Mg Tablet) 6 mg PO BEDTIME [facility] Last Admin: 01/20/23 20:51 Dose: 6 mg Documented By: ROBERT Sodium Chloride (0.9 % Sodium Chloride Flush 3 Ml Syringe) 3 ml IVFLUSH QSHIFT [facility] Last Admin: 01/21/23 08:55 Dose: 3 ml Documented By: SEEMA Labs 01/21/23 05:27 01/21/23 05:27 Labs: Laboratory Results - last 24 hr 01/20/23 01/20/23 01/20/23 13:59 14:14 14:58 MCV 92.1 MCH 29.1 MCHC 31.6 RDW 12.8 Plt Count 230 MPV 11.2 Immature Gran % (Auto) 0.5 H Neut % (Auto) 80.4 H Lymph % (Auto) 11.8 L [place] % (Auto) 6.1 Eos % (Auto) 0.8 Baso % (Auto) 0.4 Lymph # (Auto) 1.2 [place] # (Auto) 0.6 Eos # (Auto) 0.1 Baso # (Auto) 0.0 Abs Immat Gran (auto) 0.05 H Absolute Neuts (auto) 8.3 Absolute Nucleated RBC 0.000 Nucleated RBC % (auto) 0.0 PT 12.5 INR 1.0 Anion Gap 14 Estim Creat Clear Calc 46.6 Estimated GFR 38 Random Glucose 108 Fasting Glucose Lactic Acid 0.7 Calcium 10.5 H Magnesium 2.5 Total Bilirubin 0.4 Direct Bilirubin 0.2 AST 13 ALT 20 Alkaline Phosphatase 90 Total Protein 8.2 H Albumin 4.0 Lipase 17 TSH 1.20 Urine Color Yellow Urine Appearance Clear Urine pH 5.5 Ur Specific [place] 1.010 Urine Protein 100 (2+) H Urine Glucose (UA) Negative Urine Ketones Negative Urine Blood Negative Urine Nitrite Positive H Ur Leukocyte Esterase Moderate (2+) H Urine RBC 0-2 Urine WBC 21-50 H Ur Squamous Epith Cells 3-5 Urine Bacteria 4+ Hyaline Casts 0-2 COVID-19 (KAREN) Negative COVID-19 Clin Com See Note 01/21/23 05:27 MCV 90.4 MCH 28.6 MCHC 31.6 RDW 12.6 Plt Count 208 MPV 11.1 Immature Gran % (Auto) Neut % (Auto) Lymph % (Auto) [place] % (Auto) Eos % (Auto) Baso % (Auto) Lymph # (Auto) [place] # (Auto) Eos # (Auto) Baso # (Auto) Abs Immat Gran (auto) Absolute Neuts (auto) Absolute Nucleated RBC 0.000 Nucleated RBC % (auto) 0.0 PT INR Anion Gap 15 Estim Creat Clear Calc 38.8 Estimated GFR 51 Random Glucose Fasting Glucose 106 H Lactic Acid Calcium 9.9 Magnesium Total Bilirubin Direct Bilirubin AST ALT Alkaline Phosphatase Total Protein Albumin Lipase TSH Urine Color Urine Appearance Urine pH Ur Specific [place] Urine Protein Urine Glucose (UA) Urine Ketones Urine Blood Urine Nitrite Ur Leukocyte Esterase Urine RBC Urine WBC Ur Squamous Epith Cells Urine Bacteria Hyaline Casts COVID-19 (KAREN) COVID-19 Clin Com Assessment and Plan (1) Acute UTI: Status: Acute Plan 67F PMH CVA with left hemiparesis, chornic hypoxic respiratory failure on 2L home o2 due to copd, aphasia, hypertension, chronic urinary tension with Brito catheter and recurrent UTIs, epilepsy, hyperlipidemia presented from [facility] with altered mental status Acute metabolic encephalopathy due to recurrent urinary tract infection due to chronic indwelling Brito catheter IV ceftriaxone, follow-up cultures, catheter exchanged in [facility] Epilepsy Keppra CKD 3 Stable chronic hypoxic respiratory failure on 2L home o2 due to copd stable Hypertension Continue JOHNSON-inhibitor, amlodipine History of CVA with left hemiparesis and aphasia Plavix, statin DVT prophylaxis with Lovenox Full code reason for continued hospitalization:awaiting cultures Time Spent With Patient Time: Total time managing care of this patient today ____ minutes. Quality Stroke Does the patient have a stroke diagnosis?: No VTE Prior VTE?: No VTE Risk Level:: Medical - moderate - high VTE Device Contraindication: Treatment Not Indicated VTE Drug Contraindication: N/A - Med Ordered
--- NOTE | 2023-01-21 10:31 | P.CDIM_ITS ---
PROVIDER RESPONSE TEXT: To clarify, the appropriate diagnosis supported by the clinical indicators: Hypernatremia QUERY TEXT: PHYSICIAN'S DOCUMENTATION REQUEST Date of Query: 01/21/2023 10:22 AM EDT Patient Name: Kimberly Vargas Admit Date: 01/20/2023 Dear Cristian Negrete, A review of the medical record indicates additional documentation may be needed. Please review below and update the documentation accordingly. Clinical Indicators: LAB FINDINGS: sodium 146 H Based on the above, is there a diagnosis that correlates with these lab findings: Hypernatremia Labs indicate a diagnosis of (please specify) Other please specify Other (explain)Clinically unable to determine (explain)Thank you, Angelica Gordon, CCS, CDIS Use of terms such as suspected, likely, concern for, or probable (associated with a specific diagnosi s that is being evaluated, monitored, or treated as if it exists) are acceptable and can be coded in the inpatient se tting, when documented at the time of discharge. Please use your independent medical judgment in providing your response. THIS QUERY IS PART OF THE PERMANENT MEDICAL RECORD
--- NOTE | 2023-01-21 10:31 | P.CDIM_ITS ---
PROVIDER RESPONSE TEXT: To clarify, the appropriate diagnosis supported by the clinical indicators: Hypokalemia QUERY TEXT: PHYSICIAN'S DOCUMENTATION REQUEST Date of Query: 01/21/2023 10:24 AM EDT Patient Name: Kimberly Vargas Admit Date: 01/20/2023 Dear Cristian Negrete, A review of the medical record indicates additional documentation may be needed. Please review below and update the documentation accordingly. Clinical Indicators: LAB FINDINGS: potassium 3.0 L Based on the above, is there a diagnosis that correlates with these lab findings: Hypokalemia Labs indicate a diagnosis of (please specify) Other please specify Other (explain)Clinically unable to determine (explain)Thank you, Angelica Gordon, CCS, CDIS Use of terms such as suspected, likely, concern for, or probable (associated with a specific diagnosi s that is being evaluated, monitored, or treated as if it exists) are acceptable and can be coded in the inpatient se tting, when documented at the time of discharge. Please use your independent medical judgment in providing your response. THIS QUERY IS PART OF THE PERMANENT MEDICAL RECORD
--- NOTE | 2023-01-21 11:49 | MHC.CM.PN ---
PT FROM [facility]. NURSE - GIAN [phone], FOUNDRY MANAGER - CINDI [phone] HCP- DARSHAN EASLEY [phone], WILL FAX COPY PCP- SIMON PADILLA MD PT USES WHEELCHAIR +COVID VAX IMM ADDRESSED VIA TELEPHONE MESSAGE TO HCP. WHITE COPY TO BE MAILED. DP: RETURN TO SNF VIA BLS TRANSPORT. NURSE GIAN REQUESTING RX'S BE SENT TO [facility], IF DC ON 01/22.
[2023-01-21] MEDS: cefTRIAXone sodium 1 GM in 0.9 % Sodium Chloride 50 ML IV (14:39)
[2023-01-21 15:18] VITALS: BP 121/58; PULSE 73; RESP 16; TEMP 36.8; O2SAT 93
[2023-01-21] MEDS: Enoxaparin Sodium 40 MG/0.4 ML SYRINGE SUBCUT (16:41)
[2023-01-21 19:08] VITALS: BP 156/67; PULSE 73; RESP 16; TEMP 36.8; O2SAT 99
[2023-01-21] MEDS: Melatonin 3 MG TABLET 6 MG PO (20:15)
[2023-01-21] MEDS: Atorvastatin Calcium 80 MG TABLET PO (20:15)
[2023-01-22] MEDS: Acetaminophen 325 MG TABLET 650 MG PO ×3 (00:44→15:40)
[2023-01-22 03:27] VITALS: BP 121/58; PULSE 59; RESP 14; TEMP 36.1; O2SAT 95
[2023-01-22 05:10] LABS: Hematocrit 31.1 % (37.0-47.0); Hemoglobin 9.8 g/dl (12.0-16.0); Mean Corpuscular HGB Conc 31.5 g/dl (31.0-35.0); Mean Corpuscular Hemoglobin 28.8 pg (27.0-33.0); Mean Corpuscular Volume 91.5 fL (80.0-98.0); Mean Platelet Volume 11.7 fL (9.4-12.3); Platelet Count 184 X10*3/uL (160-400); Red Cell Distribution Width 12.5 % (11.0-16.0); White Blood Count 6.8 X10*3/uL (4.8-10.8)
[2023-01-22 05:21] LABS: Anion Gap 18 (12-20); Blood Urea Nitrogen 42 mg/dL (9-16); Calcium 9.2 mg/dL (8.4-10.2); Carbon Dioxide 23 mmol/L (22-29); Chloride 102 mmol/L (96-108); Creatinine Clr Calc Pharmacy 31.6; Estimated Glomerular Filt Rate 41; Glucose Fasting 100 mg/dL (60-99); Potassium 2.7 mmol/L (3.3-5.1); Sodium 140 mmol/L (135-145)
[2023-01-22 06:51] VITALS: BP 120/58; PULSE 72; RESP 16; TEMP 36.1; O2SAT 94
[2023-01-22] MEDS: Potassium Chloride ER 20 MEQ TAB.ER.PRT 40 MEQ PO (07:59)
[2023-01-22] MEDS: levETIRAcetam 250 MG TABLET 750 MG PO ×2 (07:59→19:55)
[2023-01-22] MEDS: Ascorbic Acid 500 MG TABLET PO ×2 (08:00→19:56)
[2023-01-22] MEDS: DULoxetine HCl 30 MG CAPSULE.DR PO (08:00)
[2023-01-22] MEDS: Clopidogrel Bisulfate 75 MG TABLET PO (08:00)
[2023-01-22] MEDS: Baclofen 10 MG TABLET PO ×3 (08:00→19:56)
[2023-01-22] MEDS: amLODIPine Besylate 5 MG TABLET PO (08:00)
[2023-01-22] MEDS: Ferrous Sulfate 324 MG TABLET.DR PO (08:00)
[2023-01-22] MEDS: lisinopriL 40 MG TABLET PO (08:00)
[2023-01-22] MEDS: 0.9 % Sodium Chloride Flush 3 ML SYRINGE IVFLUSH ×3 (08:01→19:55)
--- NOTE | 2023-01-22 09:18 | P.PNIM_ITS ---
Subjective Subjective Date of Service: 01/22/23 Interval History: much more alert Physical Exam 2 Vital Signs: Vital Signs: Last Vital Signs Temp 97 F 01/22/23 06:51 Pulse 72 01/22/23 06:51 Resp 16 01/22/23 06:51 BP 120/58 L 01/22/23 06:51 Pulse Ox 94 01/22/23 06:51 O2 Del Method Nasal Cannula 01/22/23 06:51 O2 Flow Rate 2 01/22/23 06:51 Oxygen Flow Rate 2 01/20/23 13:17 BMI result Body Mass Index 29.0 alert, oriented to place, name, time frail cta bilateral s1,s2, rrrr Objective Data Active Medications Acetaminophen (Acetaminophen 325 Mg Tablet) 650 mg PO Q6H PRN PRN Reason: Pain, Moderate(Pain Scale 4-6) Last Admin: 01/22/23 08:00 Dose: 650 mg Documented By: SEEMA Amlodipine Besylate (Amlodipine Besylate 5 Mg Tablet) 5 mg PO DAILY [facility]; Protocol Last Admin: 01/22/23 08:00 Dose: 5 mg Documented By: SEEMA Ascorbic Acid (Ascorbic Acid 500 Mg Tablet) 500 mg PO BID [facility] Last Admin: 01/22/23 08:00 Dose: 500 mg Documented By: SEEMA Atorvastatin Calcium (Atorvastatin Calcium 80 Mg Tablet) 80 mg PO BEDTIME [facility] Last Admin: 01/21/23 20:15 Dose: 80 mg Documented By: MEHNAZ Baclofen (Baclofen 10 Mg Tablet) 10 mg PO TID [facility] Last Admin: 01/22/23 08:00 Dose: 10 mg Documented By: SEEMA Clopidogrel Bisulfate (Clopidogrel Bisulfate 75 Mg Tablet) 75 mg PO DAILY [facility] Last Admin: 01/22/23 08:00 Dose: 75 mg Documented By: SEEMA Duloxetine HCl (Duloxetine Hcl 30 Mg Capsule.) 30 mg PO DAILY [facility] Last Admin: 01/22/23 08:00 Dose: 30 mg Documented By: SEEMA Enoxaparin Sodium (Enoxaparin Sodium 40 Mg/0.4 Ml Syringe) 40 mg SUBCUT Q24H [facility] Last Admin: 01/21/23 16:41 Dose: 40 mg Documented By: SEEMA Ferrous Sulfate (Ferrous Sulfate 324 Mg Tablet.) 324 mg PO DAILY [facility] Last Admin: 01/22/23 08:00 Dose: 324 mg Documented By: SEEMA Ceftriaxone Sodium 1 gm/ (Sodium Chloride) 50 mls @ 100 mls/hr IV Q24H [facility] Last Infusion: 01/21/23 15:29 Dose: Infused Documented By: SEEMA Levetiracetam (Levetiracetam 250 Mg Tablet) 750 mg PO BID [facility] Last Admin: 01/22/23 07:59 Dose: 750 mg Documented By: SEEMA Lisinopril (Lisinopril 40 Mg Tablet) 40 mg PO DAILY [facility] Last Admin: 01/22/23 08:00 Dose: 40 mg Documented By: SEEMA Melatonin (Melatonin 3 Mg Tablet) 6 mg PO BEDTIME [facility] Last Admin: 01/21/23 20:15 Dose: 6 mg Documented By: MEHNAZ Sodium Chloride (0.9 % Sodium Chloride Flush 3 Ml Syringe) 3 ml IVFLUSH QSHIFT [facility] Last Admin: 01/22/23 08:01 Dose: 3 ml Documented By: SEEMA Labs 01/22/23 04:26 01/22/23 04:26 Labs: Laboratory Results - last 24 hr 01/22/23 04:26 MCV 91.5 MCH 28.8 MCHC 31.5 RDW 12.5 Plt Count 184 MPV 11.7 Absolute Nucleated RBC 0.000 Nucleated RBC % (auto) 0.0 Anion Gap 18 Estim Creat Clear Calc 31.6 Estimated GFR 41 Fasting Glucose 100 H Calcium 9.2 D Microbiology Microbiology Results: Microbiology 01/20/23 14:58 Urine Culture - Final Urine clean catch - Urine cruz top Escherichia coli 01/20/23 15:36 Blood Culture - Preliminary Blood - Venous No growth after 24 hours. 01/20/23 13:59 Blood Culture - Preliminary Blood - Venous No growth after 24 hours. Assessment and Plan (1) Acute UTI: Status: Acute Plan 67F PMH CVA with left hemiparesis, chornic hypoxic respiratory failure on 2L home o2 due to copd, aphasia, hypertension, chronic urinary tension with Brito catheter and recurrent UTIs, epilepsy, hyperlipidemia presented from [facility] with altered mental status Acute metabolic encephalopathy due to recurrent urinary tract infection due to chronic indwelling Brito catheter IV ceftriaxone, follow-up cultures, catheter exchanged in [facility] mental status much improved Epilepsy Keppra CKD 3 Stable chronic hypoxic respiratory failure on 2L home o2 due to copd stable Hypertension Continue JOHNSON-inhibitor, amlodipine History of CVA with left hemiparesis and aphasia Plavix, statin DVT prophylaxis with Lovenox Full code reason for continued hospitalization:awaiting cultures Time Spent With Patient Time: Total time managing care of this patient today ____ minutes. Quality Stroke Does the patient have a stroke diagnosis?: No VTE Prior VTE?: No VTE Risk Level:: Medical - moderate - high VTE Device Contraindication: Treatment Not Indicated VTE Drug Contraindication: N/A - Med Ordered
--- NOTE | 2023-01-22 12:36 | MHC.CM.PN ---
EMR REVIEWED. PER MD ROUNDS PT NOT MEDICALLY CLEARED FOR DC AT THIS TIME. PLAN REMAINS RETURN TO DETENTION WHEN MEDICALLY CLEARED. CM WILL CONTINUE TO FOLLOW.
[2023-01-22] MEDS: Potassium Chloride ER 20 MEQ TAB.ER.PRT PO (13:30)
[2023-01-22] MEDS: cefTRIAXone sodium 1 GM in 0.9 % Sodium Chloride 50 ML IV (13:30)
[2023-01-22 15:29] VITALS: BP 100/49; PULSE 66; RESP 18; TEMP 36.1; O2SAT 98
[2023-01-22] MEDS: Enoxaparin Sodium 40 MG/0.4 ML SYRINGE SUBCUT ×2 (15:40→15:44)
[2023-01-22 19:15] VITALS: BP 104/52; PULSE 67; RESP 18; TEMP 36.1; O2SAT 97
[2023-01-22] MEDS: Melatonin 3 MG TABLET 6 MG PO (19:56)
[2023-01-22] MEDS: Atorvastatin Calcium 80 MG TABLET PO (19:56)
[2023-01-22] MEDS: Fluticasone/Umeclidinium/Vilanterol 100/62.5/25 BLST.W.DEV 1 PUFF INHALE (21:34)
[2023-01-22 22:35] VITALS: PULSE 62; RESP 16; O2SAT 99
[2023-01-22] MEDS: Albuterol Sulfate (0.083%) 2.5 MG/3 ML VIAL.NEB INHALE (22:35)
[2023-01-23 00:16] VITALS: BP 128/68; PULSE 71; RESP 19; TEMP 36.6; O2SAT 97
[2023-01-23 05:12] LABS: Hematocrit 30.3 % (37.0-47.0); Hemoglobin 9.8 g/dl (12.0-16.0); Mean Corpuscular HGB Conc 32.3 g/dl (31.0-35.0); Mean Corpuscular Hemoglobin 29.1 pg (27.0-33.0); Mean Corpuscular Volume 89.9 fL (80.0-98.0); Mean Platelet Volume 11.2 fL (9.4-12.3); Platelet Count 179 X10*3/uL (160-400); Red Blood Count 3.37 X10*6/uL (4.20-5.50); Red Cell Distribution Width 12.4 % (11.0-16.0); White Blood Count 6.7 X10*3/uL (4.8-10.8)
[2023-01-23 05:28] LABS: Anion Gap 17 (12-20); Blood Urea Nitrogen 51 mg/dL (9-16); Carbon Dioxide 23 mmol/L (22-29); Chloride 105 mmol/L (96-108); Creatinine Clr Calc Pharmacy 31.4; Estimated Glomerular Filt Rate 40; Glucose Fasting 113 mg/dL (60-99); Potassium 3.5 mmol/L (3.3-5.1); Sodium 141 mmol/L (135-145)
--- NOTE | 2023-01-23 07:11 | PM.DS ---
DS: Providers Provider Date of Service: 01/23/23 Date of admission: 01/20/23 16:52 Primary care physician: Toribio Watkins MD DS: Diagnosis Discharge Diagnosis (1) Acute UTI: Status: Acute DS: Summary Hospital Course Hospital Course: from initial hpi: 67F PMH CVA with left hemiparesis, aphasia, hypertension, chronic urinary tension with Brito catheter and recurrent UTIs, COPD, epilepsy, hyperlipidemia presented from [facility] with altered mental status. Patient unable to give history, history taken from ER/long term, patient presented more lethargic than usual for about 1 day, complaining of suprapubic pain, UA in long term was positive, sent to ED. In ED urine was grossly positive. Started on ceftriaxone. hospital course: Patient was admitted for acute metabolic encephalopathy due to recurrent urinary tract infection due to chronic indwelling Brito catheter. She should with IV ceftriaxone, culture grew E coli, she will be discharged on 5 more days of cefuroxime. Her mental status returned to baseline. For epilepsy she was continued on Keppra. Her CKD 3 remained stable. For chronic hypoxic respiratory failure on 2 L home O2 due to COPD she remained stable at her baseline O2. Hypertension she was continued on JOHNSON-inhibitor and amlodipine. For history of CVA with left hemiparesis and aphasia she was continued on Plavix and statin. Patient is back to baseline will be discharged home. Time Spent with Patient Time attestation: Total time managing care of this patient today ____ minutes. Discharge coordination time: Greater than 30 minutes Quality: Safe Use of Opioids Does Pt have an Active Cancer Diagnosis on the Problem List?: No Quality: Stroke Does the patient have a stroke diagnosis?: No Physical Exam Vital Signs: Vital Signs: Last Vital Signs Temp 97.9 F 01/23/23 00:16 Pulse 71 01/23/23 00:16 Resp 19 01/23/23 00:16 BP 128/68 01/23/23 00:16 Pulse Ox 97 01/23/23 00:16 O2 Del Method Nasal Cannula 01/23/23 00:16 O2 Flow Rate 2 01/23/23 00:16 Oxygen Flow Rate 2 01/20/23 13:17 BMI result Body Mass Index 29.0 alert, oriented to place, name, time frail cta bilateral s1,s2, rrrr DS: Data Data Completed and Pending Labs on day of discharge: Laboratory Results - last 24 hr 01/23/23 05:05 WBC 6.7 RBC 3.37 L Hgb 9.8 L Hct 30.3 L MCV 89.9 MCH 29.1 MCHC 32.3 RDW 12.4 Plt Count 179 MPV 11.2 Absolute Nucleated RBC 0.000 Nucleated RBC % (auto) 0.0 Sodium 141 Potassium 3.5 D Chloride 105 Carbon Dioxide 23 Anion Gap 17 BUN 51 H Creatinine 1.32 Estim Creat Clear Calc 31.4 Estimated GFR 40 Fasting Glucose 113 H Calcium 9.0 Preliminary micro results at discharge 01/20/23 15:36 Blood Culture - Preliminary Blood - Venous No growth after 48 hours. 01/20/23 13:59 Blood Culture - Preliminary Blood - Venous No growth after 48 hours. Discharge Plan Discharge Anticipated Discharge Date/Time: 01/23/23 07:09 Patient Disposition: Home, Self-Care Discharge Diagnosis: uti Referrals: Toribio Watkins MD [Primary Care Provider] - 1 Week Discharge Medications: New cefuroxime axetil 500 mg tablet 500 mg PO BID Qty: 10 0RF Continued atorvastatin 80 mg tablet 80 mg PO BEDTIME clopidogrel 75 mg tablet 75 mg PO DAILY amlodipine 5 mg tablet 5 mg PO DAILY baclofen 10 mg tablet 10 mg PO TID indapamide 1.25 mg tablet 1.25 mg PO DAILY levetiracetam 750 mg tablet 750 mg PO BID mupirocin 2 % ointment 1 appl topical TID furosemide 20 mg tablet 20 mg PO DAILY ramipril 10 mg capsule 10 mg PO DAILY duloxetine [Cymbalta] 30 mg capsule,delayed release(DR/EC) 30 mg PO QAM melatonin 5 mg tablet 5 mg PO BEDTIME Trelegy Ellipta 100-62.5-25 mcg blister with device 1 ea inhalation DAILY ascorbic acid (vitamin C) 500 mg Tablet 500 mg PO BID ferrous sulfate 325 mg (65 mg iron) Tablet 325 mg PO DAILY Prolia 60 mg/mL Syringe 60 mg SUBCUT [id number] [place] 952-1,347 mg Powder In Packet 1 appl TOPICAL 3XW Discharge Orders: Discharge Order (Routine); Ordered 01/23/23 Ordered By: Cristian Negrete Diet: Advance to usual diet Activity on Discharge: As tolerated Stand Alone Forms: Patient Portal Discharge page Activity Restrictions/Additional Instructions: Please follow-up with your primary care physician tomorrow. If you have any worsening or new symptoms, please return to the emergency room or call 911 Care Plan Goals: recovery Health Concerns: uti Plan of Treatment: 5 more days ceftin Assessment: see above Patient Instructions: Urinary Tract Infection in Older Adults (ED)
[2023-01-23 07:43] VITALS: BP 118/56; PULSE 65; RESP 18; TEMP 36.4; O2SAT 100
[2023-01-23 07:59] VITALS: PULSE 65; RESP 18; O2SAT 100
[2023-01-23] MEDS: Albuterol Sulfate (0.083%) 2.5 MG/3 ML VIAL.NEB INHALE (07:59)
[2023-01-23] MEDS: Fluticasone/Umeclidinium/Vilanterol 100/62.5/25 BLST.W.DEV 1 PUFF INHALE (07:59)
[2023-01-23] MEDS: Ascorbic Acid 500 MG TABLET PO (08:27)
[2023-01-23] MEDS: Baclofen 10 MG TABLET PO (08:27)
[2023-01-23] MEDS: 0.9 % Sodium Chloride Flush 3 ML SYRINGE IVFLUSH (08:27)
[2023-01-23] MEDS: lisinopriL 40 MG TABLET PO (08:27)
[2023-01-23] MEDS: levETIRAcetam 250 MG TABLET 750 MG PO (08:27)
[2023-01-23] MEDS: DULoxetine HCl 30 MG CAPSULE.DR PO (08:27)
[2023-01-23] MEDS: Clopidogrel Bisulfate 75 MG TABLET PO (08:27)
[2023-01-23] MEDS: amLODIPine Besylate 5 MG TABLET PO (08:28)
--- NOTE | 2023-01-23 10:37 | MHC.CM.PN ---
Addendum entered by Calli Simmons 01/23/23 10:40: HCP, DARSHAN [phone], CONTACTED VIA T/C AND INFORMED OF DC TIME/PLAN Original Note: PT CLEARED TO DC TODAY CM SPOKE TO RESHMA RN, MARY [phone] SHE WAS INFORMED PT WILL DC ON ONE NEW MED, SHE ASKED THAT THE MED BE SENT TO [facility] [address] [facility] ADDED TO CHART AND MD MESSAGED SHE ALSO INDICATED THE MED ORDER FORMS WERE SENT AHEAD AND ON PTS CHART ORDERS SIGNED BY MD AND ADDED TO PTS DC FOLDER MARY AWARE BLS TRANSPORT WILL BE ARRANGED FOR PT FOR 1300 HOURS
== END 2023-01-23 15:02 | disposition home or self-care (01) | DRG 698 ==
LOC: HO.ED 16:34 → HO.EDOVER 16:55 → HO.S3 17:03
PROVIDERS: Admitting Provider Internal Medicine; Emergency Provider Emergency Medicine; PCP Internal Medicine; Visit Provider Internal Medicine
DX: T83.511A Infection and inflammatory reaction due to indwelling urethral catheter, initial encounter (principal); G93.41 Metabolic encephalopathy; J96.11 Chronic respiratory failure with hypoxia; I69.354 Hemiplegia and hemiparesis following cerebral infarction affecting left non-dominant side; E87.0 Hyperosmolality and hypernatremia; N39.0 Urinary tract infection, site not specified; G40.909 Epilepsy, unspecified, not intractable, without status epilepticus; E86.0 Dehydration; J44.9 Chronic obstructive pulmonary disease, unspecified; Y73.8 Miscellaneous gastroenterology and urology devices associated with adverse incidents, not elsewhere classified; N18.30 Chronic kidney disease, stage 3 unspecified; I69.320 Aphasia following cerebral infarction; I12.9 Hypertensive chronic kidney disease with stage 1 through stage 4 chronic kidney disease, or unspecified chronic kidney disease; E78.5 Hyperlipidemia, unspecified; E87.6 Hypokalemia; B96.20 Unspecified Escherichia coli [E. coli] as the cause of diseases classified elsewhere; Z20.822 Contact with and (suspected) exposure to COVID-19; Z99.81 Dependence on supplemental oxygen; Z87.440 Personal history of urinary (tract) infections; Z79.02 Long term (current) use of antithrombotics/antiplatelets; Z87.891 Personal history of nicotine dependence; Z79.899 Other long term (current) drug therapy
CPT/HCPCS: 36415; 71045; 80048; 80076; 81001; 83605; 83690; 83735; 84443; 84484; 85025; 85027; 85610; 87040; 87086; 87088; 87186; 87635; 93005; 94640; 99285; J0696; J1650

== ENCOUNTER → 2023-01-20 16:52 | Outpatient (BNV) | payer MEDICARE, MEDICAID, SELFPAY | PROVIDERS: Admitting Provider Internal Medicine; Emergency Provider Emergency Medicine; PCP Internal Medicine; Visit Provider Internal Medicine | DX: N39.0 Urinary tract infection, site not specified (principal) | CPT/HCPCS: 99223; 99232; 99239 ==